=== PATIENT | male | born 1975 | race Caucasian/White ===

== ENCOUNTER 2017-06-21 22:37 | Emergency (ER) | payer SELFPAY ==
[2017-06-21 22:49] VITALS: TEMP 98.6
[2017-06-21] MEDS ORDERED: LORazepam 2 MG/ML INJ IVP ONE (22:56)
[2017-06-21] MEDS ORDERED: NS 1,000 ML IV ONE (22:56)
[2017-06-21 23:01] LABS: PLATELET COUNT 288 10^3/uL (150-400)
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
--- NOTE | 2017-06-21 23:11 | CPEKG ---
Heart Rate: 100 RR Interval: 600 P-R Interval: 144 QRSD Interval: 120 QT Interval: 352 QTC Interval: 454 P [place]: 58 QRS [place]: -29 T Wave [place]: 51 EKG Severity - ABNORMAL ECG - EKG Impression: SINUS TACHYCARDIA EKG Impression: INCOMPLETE RBBB AND LAFB Electronically Signed By: Yuliet Munoz 22-Jun-2017 05:16:05
[2017-06-22 07:52] VITALS: BP 128/78; PULSE 78; RESP 16; O2SAT 96
== END 2017-06-22 07:51 | disposition home or self-care (01) ==
DX: R07.9 Chest pain, unspecified (principal); F10.921 Alcohol use, unspecified with intoxication delirium; E86.9 Volume depletion, unspecified
CPT/HCPCS: 80305; 96374; G0480; J2060

== ENCOUNTER 2017-07-30 11:15 | Emergency (ER) | payer MEDICAID ==
[2017-07-30 11:34] VITALS: BP 133/95
--- NOTE | 2017-07-30 11:54 | EDPHY ---
HPI/HX/ROS/PE/MDM Narrative: CHIEF COMPLAINT: Right hand pain HPI: The patient is a 42-year-old male with a history of polysubstance abuse per prior chart. He states that he injured his right hand approximately 2 days ago but does not remember how. Complains of right hand pain and is demanding IV narcotics for this. He denies other injury. REVIEW OF SYSTEMS: Aside from elements discussed in the HPI, a comprehensive 10-point review of systems was reviewed and is negative. PMH: Includes polysubstance abuse. SOCIAL HISTORY: Record indicates polysubstance abuse. Patient admits to drinking alcohol. PHYSICAL EXAM: General:Patient is alert, in no acute distress. ENT:Eyes are normal to inspection. ENT inspection normal. Neck: Normal inspection. Full range of motion. Respiratory:No respiratory distress. Breath sounds normal bilaterally. Cardiovascular: Regular rate and rhythm. Strong peripheral pulses. Normal cap refill. Abdomen:The abdomen is nontender to palpation. There are no peritoneal signs. There are normal bowel sounds. Back: Normal to inspection. No tenderness to palpation. Skin: Normal color. No rash. Warm and dry. Extremities: Normal appearance. Full range of motion. Neuro: Oriented x3. Normal motor function. Normal sensory function. ED Course: This patient presents with complaint of right hand pain and but insists that his right hand is not broken and refuses x-ray or further evaluation. He states "I'm here because I'm being a little bitch." His exam is not consistent with fracture or serious injury. I asked the patient about this refusal and he confirmed it, which prompted me to ask what we can do for him. He stated that he would like IV drugs, oxygen and to be put to sleep for a little while. I explained that this is not a reasonable request and that this would not be performed in the emergency department. He then stated that he would like a ride home. I offered him to speak our telehealth case manager but the patient states he has plenty of money and a place to live so that is not an issue. The patient became very hostile to both myself and the nurse during exam and he was ultimately escorted out discharge by security. I see no signs of acute medical emergency at this time. General Time Seen by Provider: 07/30/17 11:46 Initial Vital Signs: Initial Vital Signs Temperature (C) 36.9 C 07/30/17 11:31 Heart Rate 118 H 07/30/17 11:31 Respiratory Rate 16 07/30/17 11:31 Blood Pressure 133/95 H 07/30/17 11:31 O2 Sat (%) 96 07/30/17 11:31 O2 Delivery Mode Room Air Allergies/Adverse Reactions: No Known Allergies Allergy (Unverified 07/30/17 11:31) Home Medications: Medication Instructions Recorded NK [No Known Home Meds] 06/21/17 Departure - Departure Disposition: Home, Routine, Self-Care Clinical Impression: Hand pain, Alcohol intoxication Condition: Good Instructions: Additional Information Referrals: Patient,NotPresent [Unknown] - As per Instructions
== END 2017-07-30 12:06 | disposition home or self-care (01) ==
DX: S69.91XA Unspecified injury of right wrist, hand and finger(s), initial encounter (principal); F10.129 Alcohol abuse with intoxication, unspecified; X58.XXXA Exposure to other specified factors, initial encounter

== ENCOUNTER 2017-08-19 10:41 | Emergency (ER) | payer OTHER, MEDICAID ==
[2017-08-19] MEDS ORDERED: LORazepam 1 MG TAB PO ONE (10:47)
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
[2017-08-19 10:55] LABS: PLATELET COUNT 475 10^3/uL (150-400)
[2017-08-20] MEDS ORDERED: IBUPROFEN 600 MG TAB PO ONE (14:30)
[2017-08-20 14:53] VITALS: BP 131/79
== END 2017-08-20 15:26 ==
LOC: EDUNIT# → EDBD
DX: R45.851 Suicidal ideations (principal); F10.929 Alcohol use, unspecified with intoxication, unspecified; F17.200 Nicotine dependence, unspecified, uncomplicated
CPT/HCPCS: 80305; G0480

== ENCOUNTER 2018-02-01 15:01 | Emergency (ER) | payer MEDICAID, OTHER ==
[2018-02-01 15:11] VITALS: BP 164/108
--- NOTE | 2018-02-01 15:12 | EDPHY ---
H & P Time Seen by Provider: 02/01/18 15:05 HPI/ROS: CHIEF COMPLAINT: Anxiety, depression HISTORY OF PRESENT ILLNESS: Patient is a 42-year-old male presents emergency department via EMS with anxiety and depression. Patient states that he has recently been switching his medication. He was then an SSRI was switched to Wellbutrin. The patient states"I am human kidney pain."Patient does not feel the medications are working. He has been drinking heavily. He drank earlier today. He also uses TH C. No other drug use. Patient denies any recent trauma or injury. Patient is not hearing any voices. Patient has no thoughts of wanting to harm himself or others REVIEW OF SYSTEMS: 10 systems were reveiwed and are negative with the exception of the elements mentioned in the history of present illness. Past Medical/Surgical History: Includes anxiety, depression, spinal stenosis Past surgical history: Denies Social history: Patient drinks alcohol uses marijuana. Smoking Status: Current some day smoker Physical Exam: Vitals noted. Mildly tachycardic. GENERAL: Well-appearing, in no acute distress, alert. HEENT: Eyes normal to inspection, normal pharynx, no signs of dehydration. NECK: Normal, supple. RESPIRATORY: Clear to auscultation bilaterally, no rales, rhonchi or wheezing. CVS: Regular rate and rhythm, no rubs, murmurs, or gallops. ABDOMEN: Soft, nontender, nondistended, no organomegaly. BACK: Normal to inspection, no CVA tenderness. SKIN: Normal color, no rash, warm, dry. No pallor. EXTREMITIES: Patient has a small abrasion on his right wrist. He states this is from a pickle jar. No pedal edema, no calf tenderness, no Homans sign or cords, no joint swelling. NEURO/PSYCH: Alert and oriented, normal mood and affect, normal motor sensory exam. No obvious cranial nerve deficit. Constitutional: Initial Vital Signs Temperature (C) 36.6 C 02/01/18 15:09 Heart Rate 106 H 02/01/18 15:09 Respiratory Rate 16 02/01/18 15:09 Blood Pressure 164/108 H 02/01/18 15:09 O2 Sat (%) 96 02/01/18 15:09 O2 Delivery Mode Room Air Allergies/Adverse Reactions: No Known Allergies Allergy (Unverified 07/30/17 11:31) Home Medications: Medication Instructions Recorded NK [No Known Home Meds] 06/21/17 Medical Decision Making ED Course/Re-evaluation: In the emergency department I discussed possible etiologies with the patient. I answered all his questions. Patient had an IV placed by EMS studies were ordered. The patient awaiting psychiatric evaluation. On recheck the patient did not want wait for evaluation. He want to leave the emergency department. He is not actively suicidal. I do not feel he needed to be placed on a hold. He was allowed to leave. Differential Diagnosis: My differential includes but is not limited to depression, anxiety, suicidal ideation, homicidal ideation, alcohol abuse, drug abuse, electrolyte abnormality , sugar abnormality - Data Points Laboratory Results: Laboratory Results 02/01/18 15:05 02/01/18 15:05 02/01/18 02/01/18 15:05 15:05 WBC 10.73 10^3/uL H 10^3/uL (3.80-9.50) RBC 5.56 10^6/uL 10^6/uL (4.40-6.38) Hgb 17.2 g/dL g/dL (13.7-17.5) Hct 49.6 % % (40.0-51.0) MCV 89.2 fL fL (81.5-99.8) MCH 30.9 pg pg (27.9-34.1) MCHC 34.7 g/dL g/dL (32.4-36.7) RDW 12.2 % % (11.5-15.2) Plt Count 493 10^3/uL H 10^3/uL (150-400) MPV 9.0 fL fL (8.7-11.7) Neut % (Auto) 64.4 % % (39.3-74.2) Lymph % (Auto) 23.3 % % (15.0-45.0) [place] % (Auto) 10.8 % % (4.5-13.0) Eos % (Auto) 0.5 % L % (0.6-7.6) Baso % (Auto) 0.7 % % (0.3-1.7) Nucleat RBC Rel Count 0.0 % % (0.0-0.2) Absolute Neuts (auto) 6.92 10^3/uL H 10^3/uL (1.70-6.50) Absolute Lymphs (auto) 2.50 10^3/uL 10^3/uL (1.00-3.00) Absolute Monos (auto) 1.16 10^3/uL H 10^3/uL (0.30-0.80) Absolute Eos (auto) 0.05 10^3/uL 10^3/uL (0.03-0.40) Absolute Basos (auto) 0.07 10^3/uL 10^3/uL (0.02-0.10) Absolute Nucleated RBC 0.00 10^3/uL 10^3/uL (0-0.01) Immature Gran % 0.3 % % (0.0-1.1) Immature Gran # 0.03 10^3/uL 10^3/uL (0.00-0.10) Sodium 139 mEq/L mEq/L (135-145) Potassium 3.9 mEq/L mEq/L (3.3-5.0) Chloride 98 mEq/L mEq/L (97-110) Carbon Dioxide 17 mEq/l L mEq/l (22-31) Anion Gap 24 mEq/L H mEq/L (6-14) BUN 9 mg/dL mg/dL (7-23) Creatinine 1.2 mg/dL mg/dL (0.7-1.3) Estimated GFR > 60 Glucose 193 mg/dL H mg/dL (70-100) Calcium 9.8 mg/dL mg/dL (8.5-10.4) Salicylates < 1.0 mg/dL L mg/dL (2.0-20.0) Acetaminophen < 10 mcg/mL L mcg/mL (10-30) Ethyl Alcohol 231 mg/dL H mg/dL (0-10) Departure - Departure Disposition: Against Medical Advice Clinical Impression: Anxiety, Alcohol abuse Depression Qualifiers: Depression Type: unspecified Qualified Code(s): F32.9 - Major depressive disorder, single episode, unspecified Condition: Good Instructions: Depression (ED), Abuse of Alcohol (ED) Referrals: [facility],. [Clinic] - 5-7 days, if not improved
[2018-02-01 15:26] LABS: PLATELET COUNT 493 10^3/uL (150-400)
== END 2018-02-01 16:31 | disposition left against medical advice (07) ==
LOC: EDUNIT#
DX: F41.9 Anxiety disorder, unspecified (principal); F32.9 Major depressive disorder, single episode, unspecified; F10.188 Alcohol abuse with other alcohol-induced disorder; Y90.7 Blood alcohol level of 200-239 mg/100 ml; Z72.0 Tobacco use
CPT/HCPCS: G0480

== ENCOUNTER 2018-04-15 18:54 | Emergency (ER) | payer MEDICAID ==
--- NOTE | 2018-04-15 19:02 | EDPHY ---
H & P Stated Complaint: "panic attack" elevated heart rate "i have a missing daughter " - Medical/Surgical History Hx Asthma: No Hx Chronic Respiratory Disease: No Hx Diabetes: No Hx Cardiac Disease: No Hx Renal Disease: No Hx Cirrhosis: No Hx Alcoholism: Yes Other PMH: ETOH, depression, anxiety - Social History Smoking Status: Current some day smoker Time Seen by Provider: 04/15/18 19:01 Constitutional: Initial Vital Signs Temperature (C) 36.5 C 04/15/18 18:57 Heart Rate 122 H 04/15/18 18:57 Respiratory Rate 26 H 04/15/18 18:57 Blood Pressure 131/91 H 04/15/18 18:57 O2 Sat (%) 100 04/15/18 18:57 O2 Delivery Mode Room Air Allergies/Adverse Reactions: No Known Allergies Allergy (Unverified 07/30/17 11:31) Home Medications: Medication Instructions Recorded NK [No Known Home Meds] 06/21/17 Medical Decision Making ED Course/Re-evaluation: CHIEF COMPLAINT: Panic attack HISTORY OF PRESENT ILLNESS: The patient is a 43 y/o male with a history of anxiety, depression, and prior psychiatric admissions arriving voluntarily complaining of a panic attack for the last 6 hours. He says "I've gone through panic attacks before and I'm going through one now" and he tried "to deaden it with whiskey and it didn't help." He attributes his symptoms to a "norepinephrine deficiency" and reports Ativan has helped in the past. He denies pain anywhere, recent illness, or recent trauma. It sounds like he has been off his psychiatric medications for an unknown amount of time. REVIEW OF SYSTEMS: A comprehensive 10 system review of systems is otherwise negative aside from elements mentioned in the history of present illness and medical decision making. PHYSICAL EXAM: HR, BP, O2 Sat, RR. Temp noted General Appearance: Alert, well hydrated, manic-appearing. Lying on bed in position. Intermittently laughing. Head: Atraumatic without scalp tenderness or obvious injury Eyes: Pupils equal, round, reactive to light and accommodation, EOMI, no trauma , no injection. Ears: Clear bilaterally, no perforation, normal landmarks Nose: Atraumatic, no rhinorrhea, clear. Throat: Mucus membranes moist. Neck: Supple, nontender, no lymphadenopathy. Respiratory: No retractions, no distress, no wheezes, and no accessory muscle use. Lungs are clear to auscultation bilaterally. Cardiovascular: Tachycardic regular rate and rhythm, no murmurs, rubs, or gallops. Good capillary refill all extremities. Gastrointestinal: Abdomen is soft, nontender, non-distended, no masses, no rebound, no guarding, no peritoneal signs. Musculoskeletal: Normal active ROM of all extremities, atraumatic. Neurological: Alert, appears manic, pressured rapid speech, and interactive. Nonfocal. Skin: No rashes, good turgor, no nodules on palpation. Past medical history: Anxiety, depression, spinal stenosis, ADD, "I have a norepinephrine deficiency" Past surgical history: Denies Family history: Noncontributory Social history: Reports his father is dying of dementia currently. Drinks alcohol and uses marijuana and cigarettes. Lives in [place]. Not employed. DIFFERENTIAL DIAGNOSIS: The differential diagnosis for the patient's altered mental status included but was not limited to psychiatric illness, hypoglycemia , infectious process, electrolyte abnormality, head injury, neurologic process, anemia, cardiac process, and intoxicants. MEDICAL DECISION MAKING: This is a 43 y/o male with a history of anxiety, depression, and possibly other psychiatric illness who presents voluntarily complaining of a panic attack. He appears manic on exam with pressure speech and vaguely mentions he is not on any of his prescribed medications. Plan for standard psychiatric labs, symptomatic management, and psychiatric evaluation. 1mg PO Ativan ordered. Labs show elevated EtOH serum level and he is non-negative for marijuana. He is medically clear for evaluation. (Willis Crandall) 0700: No acute events overnight. Patient pending mental health evaluation. Signed over to Dr. Jasmine at 7:00 a.m.. (Italo Carlos) Other Provider: Patient signed out to me at 0700. He has been evaluated by mental health who recommends discharge home. They feel he is low risk for self-harm. The patient is not an M1 hold. (Joss Jasmine) - Data Points Laboratory Results: Laboratory Results 04/15/18 19:31 04/15/18 19:31 Medications Given: Discontinued Medications Lorazepam (Ativan Injection) 1 mg IVP EDNOW ONE Stop: 04/15/18 19:16 Last Admin: 04/15/18 19:31 Dose: 1 mg Departure - Departure Disposition: Home, Routine, Self-Care Clinical Impression: Anxiety Condition: Good Instructions: Anxiety (ED) Additional Instructions: Follow-up with your primary doctor. Return to the ED for thoughts of self-harm or other concerns. Referrals: NONE *PRIMARY CARE P,. [Primary Care Provider] - As per Instructions Report Scribed for: Willis Crandall Report Scribed by: Lindsey Page Date of Report: 04/15/18 Time of Report: 19:49
[2018-04-15] MEDS ORDERED: LORazepam 2 MG/ML INJ IVP ONE (19:15)
[2018-04-15 19:43] LABS: PLATELET COUNT 316 10^3/uL (150-400)
[2018-04-16 09:32] VITALS: BP 139/100
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
--- NOTE | 2018-04-16 10:29 | ASMTTCLDSP ---
TLC Discharge Disposition Disposition: Answers: Discharge If Answers: Yes DISCHARGED: Patient/family given suicide hotline info & SAMHSA brochure? Disposition Notes: Notes: Pt stated commitment or ability to keep self safe, denied thoughts of self harm or harm to others. Pt expressed a desire to f/u with [facility] therapist Anushka Piedra, family therapist, Deloris Hernandez, and pursue private pay psychiatrist in [place]. Pt was given local hotline information and SAMHSA brochure After an Attempt. Discharge Concerns/Recommendations: Notes: In consultation with [facility] ED physician, Joss Jasmine MD, Dr. Jasmine concurred that pt does not appear to meet 27-65 criteria requiring psychiatric hospitalization as pt does not appear to be an imminent risk of harm to self/others/gravely disabled due to a mental illness condition. Was patient given the Answers: Not applicable Inpatient Behavioral Health Prohibited Belongings List while in the ED? Date Signed: 04/16/2018 10:29 AM Electronically Signed By:Thomas Steven
== END 2018-04-16 09:32 | disposition home or self-care (01) ==
DX: F41.0 Panic disorder [episodic paroxysmal anxiety] (principal)
CPT/HCPCS: 80305; 96374; G0480; J2060

== ENCOUNTER 2018-04-28 04:24 | Emergency (ER) | payer OTHER, MEDICAID ==
[2018-04-28] MEDS ORDERED: LORazepam 1 MG TAB PO ONE (04:51)
[2018-04-28] MEDS ORDERED: LORazepam 1 MG TAB ONE (04:52)
--- NOTE | 2018-04-28 06:04 | EDPHY ---
H & P Stated Complaint: panic attack Time Seen by Provider: 04/28/18 04:31 HPI/ROS: HPI The patient presents with self-described anxiety attack with palpitations, feeling of impending doom, pain of his right chest. He found out yesterday that his child who is in [facility] a was involved in an accident and hit her head. This induced a panic attack in him about 1 hr later. He had a racing heartbeat, severe anxiety, right-sided aching pain in his chest which was moderate in severity. His symptoms feel indicative of his usual panic attacks. He did try to medicate with alcohol, drinking whiskey throughout the night tonight. He was unable to sleep so he comes into the emergency department. He says he has a history of attention deficit hyperactivity disorder and anxiety , he is currently not on any medications though would like to be on Vyvanse which she has taken previously with significant improvement in his symptoms. However because he has a baseline tachycardia, he was not deemed a good candidate for this medication and was taken off of it. As he has been admitted to [facility] for anxiety in the past. He does not have any suicidal or homicidal ideation. REVIEW OF SYSTEMS 10 systems were reviewed and negative with the exception of the elements mentioned in the history of present illness. PMHx: Presumed attention deficit hyperactivity disorder Soc Hx: Housed independently, uses alcohol PHYSICAL General Appearance: Alert, no distress Eyes: Pupils equal and round no pallor or injection ENT, Mouth: Mucous membranes moist Respiratory: There are no retractions, lungs are clear to auscultation Cardiovascular: Tachycardic rate and regular rhythm Gastrointestinal: Abdomen is soft and non-tender, no masses, bowel sounds normal Neurological: A&O, moves all extremities Skin: Warm and dry, no rashes Musculoskeletal: Neck is supple non tender Extremities: symmetrical, full range of motion Psychiatric: Patient is oriented X 3, there is no agitation Source: Patient, Old records Exam Limitations: No limitations - Personal History Current Tetanus/Diphtheria Vaccine: No Current Tetanus Diphtheria and Acellular Pertussis (TDAP): No - Medical/Surgical History Hx Asthma: No Hx Chronic Respiratory Disease: No Hx Diabetes: No Hx Cardiac Disease: No Hx Renal Disease: No Hx Cirrhosis: No Hx Alcoholism: Yes Other PMH: ETOH, depression, anxiety, ADHD - Social History Smoking Status: Current some day smoker Constitutional: Initial Vital Signs Temperature (C) 36.3 C 04/28/18 04:26 Heart Rate 128 H 04/28/18 04:26 Respiratory Rate 18 04/28/18 04:26 Blood Pressure 143/95 H 04/28/18 04:26 O2 Sat (%) 100 04/28/18 04:26 O2 Delivery Mode Room Air Allergies/Adverse Reactions: shellfish derived Allergy (Verified 04/28/18 04:30) Home Medications: Medication Instructions Recorded NK [No Known Home Meds] 06/21/17 Medical Decision Making Differential Diagnosis: 43-year-old male with history of anxiety, attention deficit hyperactivity disorder, presents with anxiety attack. Here, given Ativan p. O. With improvement in his symptoms. No suicidal ideation. Here, monitored for several hours. Symptoms continually improved. He felt well enough for discharge home. I have told him about [facility] and he will follow up there. - Data Points Medications Given: Discontinued Medications Lorazepam (Ativan) 2 mg PO EDNOW ONE Stop: 04/28/18 04:52 Last Admin: 04/28/18 04:53 Dose: 2 mg Departure - Departure Disposition: Home, Routine, Self-Care Clinical Impression: Anxiety attack, Alcohol intoxication Condition: Good Instructions: [facility], Anxiety (ED) Additional Instructions: Please follow-up with [facility]. Referrals: [facility],. [Clinic] - As per Instructions
[2018-04-28 06:14] VITALS: BP 105/57
== END 2018-04-28 06:16 | disposition home or self-care (01) ==
DX: F41.0 Panic disorder [episodic paroxysmal anxiety] (principal); F90.9 Attention-deficit hyperactivity disorder, unspecified type; F17.200 Nicotine dependence, unspecified, uncomplicated